=== PATIENT | female | born 1970 | race Caucasian/White ===

== ENCOUNTER → 2018-12-15 | Outpatient (CLI) | payer BC ==
[2014-08-21 16:30] VITALS: BP 188/127
[~2018-12-15] MED LIST: ASTELIN NASAL S34 ML NS; BENADRYL ALLERG25 M1 PO; FLONASE NASAL S16 GM NS; GLIMEPIRIDE2 MG PO; HYZAAR 12.5 MG-1 TAB PO; LIDODERM 5% PATC1 EA TP; LOSARTAN POTASS1 TA2 PO; LYRICA150 MG PO; NORCO 325 MG-101 TAB PO; NORVASC 5MG5 MG/TAB PO; OXYCODONE5 MG PO; PERCOCET 325 MG1 TA2 PO; TYLENOL W/COD1 UDTAB PO; ZOFRAN4 M1 PO
== END ==
LOC: RAD 08:35
DX: K76.0 Fatty (change of) liver, not elsewhere classified (principal); R07.89 Other chest pain

== ENCOUNTER → 2020-01-29 | Outpatient (CLI) | payer BC ==
[2014-08-21 16:30] VITALS: BP 188/127
[2020-01-29 09:55] LABS: EOS # 0.3 (0.04-0.40); EOS % 2.6 % (1.0-5.0); HEMATOCRIT 48.4 % (37.0-47.0); HEMOGLOBIN 16.2 g/dL (12.5-16.0); LYMPH# 2.2 (1.50-4.00); MEAN CELL VOLUME 89 fl (78-100); MEAN CORPUSCULAR HEMOGLOBIN 30 pg (27-31); MEAN CORPUSCULAR HGB CONC 34 g/dL (33-37); MEAN PLATELET VOLUME 10.1 fl (7.4-10.4); MONO # 0.5 (0.20-0.80); NEU # 8.3 (1.40-6.50); PLATELET COUNT 287 K/mm3 (130-400); RED BLOOD COUNT 5.42 M/mm3 (4.10-5.30); RED CELL DISTRIBUTION WIDTH 14.1 % (11.5-14.5); WHITE BLOOD COUNT 11.4 K/mm3 (4.8-10.8)
[2020-01-29 09:59] LABS: ALBUMIN 4.3 g/dL (3.5-5.0)
[2020-01-29 10:01] LABS: CALCIUM 9.8 mg/dL (8.3-10.5)
[2020-01-29 10:02] LABS: TOTAL PROTEIN 7.7 g/dL (6.4-8.3)
[2020-01-29 10:04] LABS: TOTAL BILIRUBIN 0.5 mg/dL (0.2-1.2)
[2020-01-29 10:08] LABS: MAGNESIUM 1.61 mg/dL (1.60-2.60)
[2020-01-29 12:33] LABS: ERYTHROCYTE SEDIMENTATION RATE 8 mm/hr (0-20)
== END ==
LOC: LAB 09:40
PROVIDERS: Internal Medicine
DX: Z00.00 Encounter for general adult medical examination without abnormal findings (principal); Z12.11 Encounter for screening for malignant neoplasm of colon; E11.40 Type 2 diabetes mellitus with diabetic neuropathy, unspecified; I10 Essential (primary) hypertension

== ENCOUNTER → 2020-06-24 | Outpatient (CLI) | payer BC ==
[2014-08-21 16:30] VITALS: BP 188/127
[2020-06-24 11:42] LABS: EOS # 0.5 (0.04-0.40); EOS % 4.3 % (1.0-5.0); HEMATOCRIT 45.9 % (37.0-47.0); HEMOGLOBIN 15.3 g/dL (12.5-16.0); LYMPH# 3.5 (1.50-4.00); MEAN CELL VOLUME 87 fl (78-100); MEAN CORPUSCULAR HEMOGLOBIN 29 pg (27-31); MEAN CORPUSCULAR HGB CONC 33 g/dL (33-37); MEAN PLATELET VOLUME 10.4 fl (7.4-10.4); MONO # 0.5 (0.20-0.80); NEU # 6.3 (1.40-6.50); PLATELET COUNT 314 K/mm3 (130-400); RED BLOOD COUNT 5.28 M/mm3 (4.10-5.30); WHITE BLOOD COUNT 10.8 K/mm3 (4.8-10.8)
[2020-06-24 12:04] LABS: ALBUMIN 3.8 g/dL (3.5-5.0); POTASSIUM 3.3 mmol/L (3.5-5.1)
[2020-06-24 12:05] LABS: CALCIUM 9.1 mg/dL (8.3-10.5)
[2020-06-24 12:06] LABS: TOTAL PROTEIN 7.2 g/dL (6.4-8.3)
[2020-06-24 12:08] LABS: TOTAL BILIRUBIN 0.3 mg/dL (0.2-1.2)
== END ==
LOC: LAB 11:23
PROVIDERS: Internal Medicine
DX: E11.65 Type 2 diabetes mellitus with hyperglycemia (principal); K90.9 Intestinal malabsorption, unspecified; E78.2 Mixed hyperlipidemia

== ENCOUNTER → 2020-09-18 | Outpatient (CLI) | payer BC ==
[2014-08-21 16:30] VITALS: BP 188/127
== END ==
LOC: LAB 11:33
DX: K90.9 Intestinal malabsorption, unspecified (principal)

== ENCOUNTER → 2021-08-20 | Outpatient (CLI) | payer BC | LOC: RAD 14:49 | DX: K76.0 Fatty (change of) liver, not elsewhere classified (principal); M47.816 Spondylosis without myelopathy or radiculopathy, lumbar region; I70.0 Atherosclerosis of aorta; Z90.710 Acquired absence of both cervix and uterus ==

== ENCOUNTER → 2021-11-16 | Outpatient (CLI) | payer BC ==
[2021-11-16 13:34] LABS: BASO # 0.03 K/mm3 (0.02-0.10); EOS # 0.33 K/mm3 (0.04-0.40); HEMATOCRIT 42.3 % (37.0-47.0); LYMPH# 3.18 K/mm3 (1.50-4.00); MEAN CELL VOLUME 88 fl (78-100); MEAN CORPUSCULAR HEMOGLOBIN 29 pg (27-31); MEAN CORPUSCULAR HGB CONC 33 g/dL (33-37); MEAN PLATELET VOLUME 9.9 fl (7.4-10.4); MONO # 0.43 K/mm3 (0.20-0.80); NEU # 6.88 K/mm3 (1.40-6.50); PLATELET COUNT 322 K/mm3 (130-400); RED CELL DISTRIBUTION WIDTH 13.1 % (11.5-14.5); WHITE BLOOD COUNT 10.9 K/mm3 (4.8-10.8)
[2021-11-16 13:50] LABS: ALBUMIN 3.9 g/dL (3.5-5.0); POTASSIUM 3.7 mmol/L (3.5-5.1)
[2021-11-16 13:52] LABS: CALCIUM 9.5 mg/dL (8.3-10.5)
[2021-11-16 13:53] LABS: TOTAL PROTEIN 6.9 g/dL (6.4-8.3)
[2021-11-16 13:55] LABS: TOTAL BILIRUBIN 0.4 mg/dL (0.2-1.2)
[2021-11-16 15:15] LABS: ERYTHROCYTE SEDIMENTATION RATE 18 mm/hr (0-30)
== END ==
LOC: LAB 13:11
PROVIDERS: Internal Medicine
DX: Z00.00 Encounter for general adult medical examination without abnormal findings (principal)

== ENCOUNTER → 2022-07-01 | Outpatient (CLI) | payer BC | LOC: VAS 10:50 → RAD 11:15 | DX: I65.22 Occlusion and stenosis of left carotid artery (principal) ==

== ENCOUNTER → 2023-11-14 | Outpatient (CLI) | payer BC ==
[2023-11-14 11:21] LABS: BASO # 0.05 K/mm3 (0.02-0.10); EOS % 3.9 % (1.0-5.0); HEMATOCRIT 41.5 % (37.0-47.0); HEMOGLOBIN 13.2 g/dL (12.5-16.0); LYMPH# 2.27 K/mm3 (1.50-4.00); MEAN CELL VOLUME 93 fl (78-100); MEAN CORPUSCULAR HEMOGLOBIN 30 pg (27-31); MEAN CORPUSCULAR HGB CONC 32 g/dL (33-37); MEAN PLATELET VOLUME 9.4 fl (7.4-10.4); MONO # 0.34 K/mm3 (0.20-0.80); NEU # 7.18 K/mm3 (1.40-6.50); PLATELET COUNT 284 K/mm3 (130-400); RED BLOOD COUNT 4.47 M/mm3 (4.10-5.30); RED CELL DISTRIBUTION WIDTH 14.7 % (11.5-14.5); WHITE BLOOD COUNT 10.3 K/mm3 (4.8-10.8)
[2023-11-14 11:28] LABS: ALBUMIN 3.9 g/dL (3.5-5.0)
[2023-11-14 11:29] LABS: CALCIUM 10.1 mg/dL (8.3-10.5)
[2023-11-14 11:30] LABS: TOTAL PROTEIN 7.5 g/dL (6.4-8.3)
[2023-11-14 11:37] LABS: MAGNESIUM 1.94 mg/dL (1.60-2.60)
[2023-11-14 12:25] LABS: TOTAL BILIRUBIN 0.2 mg/dL (0.2-1.2)
[2023-11-14 23:53] LABS: FOLATE (FOLIC ACID) 8.5 ng/mL (2.0-20.0)
== END ==
LOC: LAB 10:57
PROVIDERS: Internal Medicine
DX: M86.179 Other acute osteomyelitis, unspecified ankle and foot (principal); I10 Essential (primary) hypertension; E11.65 Type 2 diabetes mellitus with hyperglycemia; E78.2 Mixed hyperlipidemia; K90.9 Intestinal malabsorption, unspecified

== ENCOUNTER → 2024-05-18 | Outpatient (CLI) | payer BC ==
[2024-05-18 17:13] LABS: ALBUMIN 3.8 g/dL (3.5-5.0)
[2024-05-18 17:15] LABS: CALCIUM 9.4 mg/dL (8.3-10.5)
[2024-05-18 17:16] LABS: TOTAL PROTEIN 7.4 g/dL (6.4-8.3)
[2024-05-18 17:18] LABS: TOTAL BILIRUBIN 0.2 mg/dL (0.2-1.2)
[2024-05-18 17:22] LABS: MAGNESIUM 1.86 mg/dL (1.60-2.60)
== END ==
LOC: LAB 16:49
PROVIDERS: Internal Medicine
DX: I10 Essential (primary) hypertension (principal)